=== PATIENT | male | born 1990 | race African-American/Black ===

== ENCOUNTER 2020-06-12 09:29 | Inpatient (IN) | payer BC, SELFPAY ==
[2020-06-12] MEDS ORDERED: Dexamethasone 10 MG/ML VIAL ONE (09:46)
[2020-06-12] MEDS ORDERED: Albuterol 200 PUFF (6.7GM INHALER) ONE (09:47)
[2020-06-12 10:31] LABS: #Eosinphils 0.2 thou/uL (0.0-0.7); #Lymphocytes 1.8 thou/uL (1.20-3.40); #Monocytes 0.5 thou/uL (0.11-0.59); #Neutrophils 3.2 thou/uL (1.40-6.50); %Basophils 0.3 % (0.0-1.0); %Eosinophils 3.6 % (0.0-10.0); %Lymphocytes 32.2 % (21.0-51.0); %Monocytes 8.9 % (0.0-10.0); %Neutrophils 55.1 % (42.0-75.0); Hemoglobin 14.8 g/dL (14.0-18.0); Mean Corpuscular HGB CONC 34.8 g/dL (32.0-36.0); Mean Corpuscular Hemoglobin 29.7 pg (27.0-31.0); Mean Corpuscular Volume 85.4 fL (78.0-98.0); Mean Platelet Volume 6.9 fL (7.4-10.4); Platelet Count 281 thou/uL (130-400); RBC Distribution Width 11.2 % (11.5-14.5); Red Blood Cell (RBC) Count 4.97 mill/uL (4.70-6.10); White Blood Cell (WBC) Count 5.7 thou/uL (4.8-10.8)
[2020-06-12 10:52] LABS: ALT (SGPT) 25 U/L (8-55); AST (SGOT) 40 U/L (5-34); Alkaline Phosphatase 112 U/L (40-110); Anion Gap 15 mmol/L (10-20); BUN (Urea Nitrogen) 14 mg/dL (8.9-20.6); Bilirubin, Total 0.6 mg/dL (0.2-1.2); Calc. Creatinine Clearance 0 mL/min (70-130); Calcium 8.9 mg/dL (7.8-10.44); Carbon Dioxide 18 mmol/L (22-29); Chloride 112 mmol/L (98-107); Glucose 92 mg/dL (70-105); Potassium 4.1 mmol/L (3.5-5.1); Sodium 141 mmol/L (136-145)
[2020-06-12] MEDS ORDERED: Iopamidol-370 76% 500 ML 1 ML ONE (11:30)
[2020-06-12 11:36] LABS: CKMB 4.9 ng/mL (0-6.6)
[2020-06-12] MEDS ORDERED: Enoxaparin Sodium 100 MG/ML SYRINGE ONE ×2 (12:08→12:09)
[2020-06-12] MEDS ORDERED: Enoxaparin Sodium 40 MG/0.4 ML SYRINGE ONE (12:08)
[2020-06-12 15:04] VITALS: BMI 47.9
[2020-06-12] MEDS ORDERED: Ondansetron ODT 4 MG TAB SL PRN (15:30)
[2020-06-12] MEDS ORDERED: Ondansetron PF 4 MG/2 ML Vial IVP PRN ×2 (15:30→16:17)
[2020-06-12] MEDS ORDERED: Acetaminophen 325 MG TAB PO PRN (15:30)
[2020-06-12] MEDS ORDERED: cloNIDine 0.1 MG TAB PO PRN (16:05)
[2020-06-12] MEDS ORDERED: Nitroglycerin 0.4 MG TAB (25 Tab Bottle) SL PRN (16:06)
[2020-06-12] MEDS ORDERED: Amlodipine 5 MG TAB PO SCH (16:15)
[2020-06-12] MEDS ORDERED: Calcium Carbonate 500 MG ChewTAB PO PRN (16:17)
[2020-06-12] MEDS ORDERED: Ondansetron ODT 4 MG TAB PO PRN (16:17)
[2020-06-12] MEDS: Carvedilol 6.25 MG TAB PO SCH (16:37)
[2020-06-12] MEDS: Amlodipine 5 MG TAB PO SCH (20:30)
[2020-06-12] MEDS: Benztropine 1 MG TAB PO SCH (20:31)
[2020-06-12] MEDS: clonazePAM 0.5 MG TAB PO SCH (20:32)
[2020-06-12] MEDS: Famotidine 20 MG TAB PO SCH (20:32)
[2020-06-12] MEDS: Prazosin HCl 1 MG CAP PO SCH (20:33)
[2020-06-12] MEDS ORDERED: Enoxaparin Sodium 100 MG/ML SYRINGE SC SCH (21:00)
[2020-06-12] MEDS ORDERED: Enoxaparin Sodium 40 MG/0.4 ML SYRINGE SC SCH (21:00)
[2020-06-13 06:29] LABS: #Monocytes 0.6 thou/uL (0.11-0.59); #Neutrophils 7.3 thou/uL (1.40-6.50); %Basophils 0.1 % (0.0-1.0); %Eosinophils 0.4 % (0.0-10.0); %Lymphocytes 20.3 % (21.0-51.0); %Monocytes 6.2 % (0.0-10.0); Mean Corpuscular HGB CONC 35.1 g/dL (32.0-36.0); Mean Corpuscular Hemoglobin 30.3 pg (27.0-31.0); Mean Corpuscular Volume 86.2 fL (78.0-98.0); Platelet Count 337 thou/uL (130-400); RBC Distribution Width 11.2 % (11.5-14.5); Red Blood Cell (RBC) Count 4.62 mill/uL (4.70-6.10)
[2020-06-13 06:45] LABS: ALT (SGPT) 33 U/L (8-55); AST (SGOT) 36 U/L (5-34); Albumin 3.8 g/dL (3.5-5.0); Alkaline Phosphatase 103 U/L (40-110); Anion Gap 15 mmol/L (10-20); BUN (Urea Nitrogen) 14 mg/dL (8.9-20.6); Bilirubin, Total 0.3 mg/dL (0.2-1.2); Calc. Creatinine Clearance 227 mL/min (70-130); Calcium 8.6 mg/dL (7.8-10.44); Carbon Dioxide 17 mmol/L (22-29); Chloride 111 mmol/L (98-107); Glucose 111 mg/dL (70-105); Potassium 3.8 mmol/L (3.5-5.1); Protein, Total 6.8 g/dL (6.0-8.3); Sodium 139 mmol/L (136-145)
[2020-06-13] MEDS ORDERED: Heparin 10,000 UNITS/ 10 ML VIAL SLOW IVP SCH (08:15)
[2020-06-13] MEDS ORDERED: FLU VACC QS2020-21(6MOS UP)/PF 60 MCG/0.5 ML SYRINGE IM ONE (09:00)
[2020-06-13 09:38] LABS: Hemoglobin 13.6 g/dL (14.0-18.0); Platelet Count 326 thou/uL (130-400)
[2020-06-13] MEDS: Bupropion 150 MG SR TAB PO SCH (09:51)
[2020-06-13] MEDS: Carvedilol 6.25 MG TAB PO SCH ×2 (09:51→17:18)
[2020-06-13] MEDS: clonazePAM 0.5 MG TAB PO SCH ×2 (09:51→22:25)
[2020-06-13] MEDS: Amlodipine 5 MG TAB PO SCH ×2 (09:51→22:18)
[2020-06-13] MEDS: Famotidine 20 MG TAB PO SCH ×2 (09:51→22:17)
[2020-06-13] MEDS: Heparin 25,000 units/D5W 500 ML IVPB SCH ×2 (10:25→23:29)
[2020-06-13 17:11] LABS: PTT 202.4 sec (22.9-36.1)
[2020-06-13] MEDS: Benztropine 1 MG TAB PO SCH (22:17)
[2020-06-13] MEDS: Prazosin HCl 1 MG CAP PO SCH (22:17)
[2020-06-14 04:32] LABS: #Basophils 0.1 thou/uL (0.0-0.2); #Eosinphils 0.2 thou/uL (0.0-0.7); #Lymphocytes 3.9 thou/uL (1.20-3.40); #Monocytes 0.8 thou/uL (0.11-0.59); #Neutrophils 5.1 thou/uL (1.40-6.50); %Basophils 0.9 % (0.0-1.0); %Eosinophils 2.2 % (0.0-10.0); %Lymphocytes 38.3 % (21.0-51.0); %Monocytes 8.2 % (0.0-10.0); %Neutrophils 50.4 % (42.0-75.0); Hemoglobin 13.1 g/dL (14.0-18.0); Mean Corpuscular HGB CONC 33.8 g/dL (32.0-36.0); Mean Corpuscular Volume 85.7 fL (78.0-98.0); Platelet Count 327 thou/uL (130-400); RBC Distribution Width 11.3 % (11.5-14.5); Red Blood Cell (RBC) Count 4.53 mill/uL (4.70-6.10); White Blood Cell (WBC) Count 10.1 thou/uL (4.8-10.8)
[2020-06-14 04:52] LABS: Troponin I 0.022 ng/mL (< 0.028)
[2020-06-14 05:00] LABS: ALT (SGPT) 75 U/L (8-55); AST (SGOT) 58 U/L (5-34); Albumin 3.5 g/dL (3.5-5.0); Alkaline Phosphatase 99 U/L (40-110); Anion Gap 14 mmol/L (10-20); BUN (Urea Nitrogen) 15 mg/dL (8.9-20.6); Bilirubin, Total 0.3 mg/dL (0.2-1.2); Calc. Creatinine Clearance 235 mL/min (70-130); Calcium 8.2 mg/dL (7.8-10.44); Carbon Dioxide 18 mmol/L (22-29); Chloride 112 mmol/L (98-107); Globulin 2.6 g/dL (2.4-3.5); Glucose 106 mg/dL (70-105); Potassium 3.6 mmol/L (3.5-5.1); Protein, Total 6.1 g/dL (6.0-8.3); Sodium 140 mmol/L (136-145)
[2020-06-14] MEDS: Bupropion 150 MG SR TAB PO SCH (08:35)
[2020-06-14] MEDS: clonazePAM 0.5 MG TAB PO SCH ×2 (08:35→20:47)
[2020-06-14] MEDS: Amlodipine 5 MG TAB PO SCH ×2 (08:35→20:47)
[2020-06-14] MEDS: Famotidine 20 MG TAB PO SCH ×2 (08:35→20:45)
[2020-06-14] MEDS: Heparin 25,000 units/D5W 500 ML IVPB SCH (14:33)
[2020-06-14] MEDS: Prazosin HCl 1 MG CAP PO SCH (20:46)
[2020-06-14] MEDS: Benztropine 1 MG TAB PO SCH (20:47)
[2020-06-15] MEDS: Heparin 25,000 units/D5W 500 ML IVPB SCH (01:22)
[2020-06-15 06:35] LABS: #Basophils 0.1 thou/uL (0.0-0.2); #Eosinphils 0.3 thou/uL (0.0-0.7); #Lymphocytes 3.1 thou/uL (1.20-3.40); #Monocytes 0.8 thou/uL (0.11-0.59); #Neutrophils 5.7 thou/uL (1.40-6.50); %Basophils 1.1 % (0.0-1.0); %Eosinophils 3.3 % (0.0-10.0); %Lymphocytes 31.4 % (21.0-51.0); %Monocytes 7.6 % (0.0-10.0); %Neutrophils 56.6 % (42.0-75.0); Hemoglobin 15.7 g/dL (14.0-18.0); Mean Corpuscular HGB CONC 34.9 g/dL (32.0-36.0); Mean Corpuscular Hemoglobin 29.9 pg (27.0-31.0); Mean Corpuscular Volume 85.6 fL (78.0-98.0); Mean Platelet Volume 6.7 fL (7.4-10.4); Platelet Count 368 thou/uL (130-400); RBC Distribution Width 11.4 % (11.5-14.5); Red Blood Cell (RBC) Count 5.27 mill/uL (4.70-6.10)
[2020-06-15 06:53] LABS: Anion Gap 12 mmol/L (10-20); BUN (Urea Nitrogen) 12 mg/dL (8.9-20.6); Calc. Creatinine Clearance 230 mL/min (70-130); Calcium 8.9 mg/dL (7.8-10.44); Carbon Dioxide 20 mmol/L (22-29); Chloride 110 mmol/L (98-107); Glucose 87 mg/dL (70-105); Potassium 4.1 mmol/L (3.5-5.1); Sodium 138 mmol/L (136-145)
[2020-06-15] MEDS: clonazePAM 0.5 MG TAB PO SCH ×2 (07:47→20:08)
[2020-06-15] MEDS: Bupropion 150 MG SR TAB PO SCH (07:48)
[2020-06-15] MEDS: Famotidine 20 MG TAB PO SCH ×2 (07:48→20:08)
[2020-06-15] MEDS: Amlodipine 5 MG TAB PO SCH ×2 (07:48→20:08)
[2020-06-15] MEDS: Apixaban 5 MG TAB PO SCH ×2 (08:21→20:08)
[2020-06-15 08:39] LABS: Platelet Count 392 thou/uL (130-400)
[2020-06-15] MEDS: Prazosin HCl 1 MG CAP PO SCH (20:07)
[2020-06-15] MEDS: Benztropine 1 MG TAB PO SCH (20:08)
[2020-06-16 08:52] VITALS: TEMP 98
[2020-06-16] MEDS: clonazePAM 0.5 MG TAB PO SCH (10:09)
[2020-06-16] MEDS: Apixaban 5 MG TAB PO SCH (10:09)
[2020-06-16] MEDS: Famotidine 20 MG TAB PO SCH (10:09)
[2020-06-16] MEDS: Bupropion 150 MG SR TAB PO SCH (10:10)
[2020-06-16] MEDS: Amlodipine 5 MG TAB PO SCH ×2 (10:10→18:25)
[2020-06-16 18:39] VITALS: BP 156/95
== END 2020-06-16 18:25 | disposition home or self-care (01) | DRG 175 ==
LOC: ERS 09:29 → 2SW 13:00
PROVIDERS: ADMIT Internal Medicine; ATTEND Hospitalist
PROC: 8E0ZXY6 Isolation (ICD-10-PCS; principal; 2020-06-12)
DX: I26.92 Saddle embolus of pulmonary artery without acute cor pulmonale (principal); U07.1 COVID-19; I82.432 Acute embolism and thrombosis of left popliteal vein; F20.0 Paranoid schizophrenia; Z68.42 Body mass index [BMI] 45.0-49.9, adult; Z23 Encounter for immunization; I11.9 Hypertensive heart disease without heart failure; F31.9 Bipolar disorder, unspecified; E66.01 Morbid (severe) obesity due to excess calories; E27.8 Other specified disorders of adrenal gland; I44.1 Atrioventricular block, second degree; Z91.013 Allergy to seafood; Z79.899 Other long term (current) drug therapy; Z91.14 Patient's other noncompliance with medication regimen; Z87.891 Personal history of nicotine dependence; F41.9 Anxiety disorder, unspecified
CPT/HCPCS: 36415; 71045; 71275; 80048; 80053; 82553; 84484; 85014; 85018; 85025; 85049; 85379; 85730; 93005; 93010; 93970; 94760; 96372; 96374; J1100; J1644; J1650; Q9967

== ENCOUNTER 2020-07-05 21:19 | Emergency (ER) | payer BC ==
[~2020-07-05 21:19] MED LIST: Iopamidol-370 76% 500 ML 1 ML ONE
[2020-07-05 21:59] LABS: #Eosinphils 0.2 thou/uL (0.0-0.7); #Lymphocytes 1.7 thou/uL (1.20-3.40); #Monocytes 0.4 thou/uL (0.11-0.59); #Neutrophils 4.5 thou/uL (1.40-6.50); %Basophils 0.5 % (0.0-1.0); %Eosinophils 3.6 % (0.0-10.0); %Lymphocytes 24.8 % (21.0-51.0); %Monocytes 5.5 % (0.0-10.0); %Neutrophils 65.7 % (42.0-75.0); Hemoglobin 12.5 g/dL (14.0-18.0); Mean Corpuscular HGB CONC 33.9 g/dL (32.0-36.0); Mean Corpuscular Hemoglobin 29.3 pg (27.0-31.0); Mean Corpuscular Volume 86.5 fL (78.0-98.0); Mean Platelet Volume 6.9 fL (7.4-10.4); Platelet Count 338 thou/uL (130-400); RBC Distribution Width 12.1 % (11.5-14.5); Red Blood Cell (RBC) Count 4.27 mill/uL (4.70-6.10); White Blood Cell (WBC) Count 6.8 thou/uL (4.8-10.8)
[2020-07-05 22:18] LABS: Anion Gap 10 mmol/L (10-20); BUN (Urea Nitrogen) 21 mg/dL (8.9-20.6); Calc. Creatinine Clearance 0 mL/min (70-130); Calcium 8.8 mg/dL (7.8-10.44); Carbon Dioxide 24 mmol/L (22-29); Chloride 108 mmol/L (98-107); Glucose 133 mg/dL (70-105); Potassium 3.4 mmol/L (3.5-5.1); Sodium 139 mmol/L (136-145)
[2020-07-05] MEDS ORDERED: Acetaminophen 325 MG TAB ONE (23:03)
[2020-07-06 00:03] LABS: Acetaminophen Less than 6.0 mcg/mL (10.0-30.0); Alcohol Less than 10 mg/dL (Less than 10); Salicylate Less than 8.0 mg/dL (15.0-30.0)
[2020-07-06 00:37] LABS: Amphetamine Not Detected (NotDetected); Barbiturates Screen Not Detected (NotDetected); Benzodiazepine Screen Not Detected (NotDetected); Cocaine Metabolite Screen Not Detected (NotDetected); Medtox Control Line Valid? VALID (VALID); Medtox Reader # READER 4; Methadone Not Detected (NotDetected); Methamphetamine Not Detected (NotDetected); Opiate Screen Not Detected (NotDetected); Oxycodone Screen Not Detected (NotDetected); Phencyclidine (PCP) Not Detected (NotDetected); THC/Cannabinoid Screen Not Detected (NotDetected); Tricyclic Screen Detected (NotDetected)
[2020-07-06] MEDS ORDERED: Enoxaparin Sodium 100 MG/ML SYRINGE ONE (01:01)
[2020-07-06] MEDS ORDERED: Enoxaparin Sodium 30 MG/0.3 ML SYRINGE ONE (01:01)
[2020-07-06] MEDS ORDERED: Enoxaparin Sodium 40 MG/0.4 ML SYRINGE ONE (01:03)
[2020-07-06] MEDS ORDERED: Apixaban 5 MG TAB PO SCH ×2 (14:00→21:00)
[2020-07-06] MEDS ORDERED: clonazePAM 1 MG TAB PO SCH (15:00)
[2020-07-06] MEDS ORDERED: clonazePAM 1 MG TAB ONE (17:04)
[2020-07-07] MEDS ORDERED: Bupropion 150 MG SR TAB PO SCH (09:00)
== END 2020-07-06 17:20 ==
LOC: ERS 21:19
DX: R45.850 Homicidal ideations (principal); I10 Essential (primary) hypertension; Z87.891 Personal history of nicotine dependence; Z86.711 Personal history of pulmonary embolism; Z79.01 Long term (current) use of anticoagulants; Z79.899 Other long term (current) drug therapy
CPT/HCPCS: 36415; 71275; 80048; 80306; 80307; 83880; 84484; 85025; 93005; 96372; J1650; Q9967

== ENCOUNTER 2020-10-15 13:21 | Emergency (ER) | payer BC | END 2020-10-15 14:58 | disposition home or self-care (01) | LOC: ERS 13:21 | DX: R51.9 Headache, unspecified (principal); Z02.79 Encounter for issue of other medical certificate; I10 Essential (primary) hypertension; F17.210 Nicotine dependence, cigarettes, uncomplicated; Z79.899 Other long term (current) drug therapy | CPT/HCPCS: 36415; 71045; 80053; 84484; 85025; 93005 ==

== ENCOUNTER 2020-12-10 03:05 | Emergency (ER) | payer SELFPAY ==
[2020-12-10] MEDS ORDERED: Acetaminophen 500 MG TAB ONE (03:21)
[2020-12-10] MEDS ORDERED: Iopamidol-370 76% 500 ML 1 ML ONE (12:12)
== END 2020-12-10 04:30 | disposition home or self-care (01) ==
LOC: ERS 03:05
DX: R51.9 Headache, unspecified (principal); I10 Essential (primary) hypertension; Z86.711 Personal history of pulmonary embolism; Z79.01 Long term (current) use of anticoagulants; Z79.899 Other long term (current) drug therapy
CPT/HCPCS: 71275; Q9967

== ENCOUNTER 2020-12-12 11:40 | Emergency (ER) | payer SELFPAY ==
[2020-12-12 14:14] LABS: #Eosinphils 0.4 thou/uL (0.0-0.7); #Lymphocytes 1.6 thou/uL (1.20-3.40); #Monocytes 0.3 thou/uL (0.11-0.59); #Neutrophils 3.5 thou/uL (1.40-6.50); %Basophils 0.7 % (0.0-1.0); %Eosinophils 6.3 % (0.0-10.0); %Lymphocytes 27.3 % (21.0-51.0); %Monocytes 5.6 % (0.0-10.0); %Neutrophils 60.1 % (42.0-75.0); Hemoglobin 15.3 g/dL (14.0-18.0); Mean Corpuscular HGB CONC 33.9 g/dL (32.0-36.0); Mean Corpuscular Hemoglobin 29.5 pg (27.0-31.0); Mean Corpuscular Volume 87.1 fL (78.0-98.0); Platelet Count 325 thou/uL (130-400); RBC Distribution Width 11.6 % (11.5-14.5); Red Blood Cell (RBC) Count 5.18 mill/uL (4.70-6.10); White Blood Cell (WBC) Count 5.8 thou/uL (4.8-10.8)
[2020-12-12 14:20] LABS: Amphetamine Not Detected (NotDetected); Barbiturates Screen Not Detected (NotDetected); Benzodiazepine Screen Not Detected (NotDetected); Cocaine Metabolite Screen Not Detected (NotDetected); Methadone Not Detected (NotDetected); Methamphetamine Not Detected (NotDetected); Opiate Screen Not Detected (NotDetected); Oxycodone Screen Not Detected (NotDetected); Phencyclidine (PCP) Not Detected (NotDetected); THC/Cannabinoid Screen Not Detected (NotDetected); Tricyclic Screen Detected (NotDetected)
[2020-12-12 14:31] LABS: ALT (SGPT) 26 U/L (8-55); AST (SGOT) 36 U/L (5-34); Albumin 4.2 g/dL (3.5-5.0); Alkaline Phosphatase 113 U/L (40-110); Anion Gap 12 mmol/L (10-20); BUN (Urea Nitrogen) 16 mg/dL (8.9-20.6); Bilirubin, Total 0.3 mg/dL (0.2-1.2); Calc. Creatinine Clearance 0 mL/min (70-130); Calcium 9.7 mg/dL (7.8-10.44); Carbon Dioxide 22 mmol/L (22-29); Chloride 108 mmol/L (98-107); Globulin 3.2 g/dL (2.4-3.5); Glucose 99 mg/dL (70-105); Potassium 4.4 mmol/L (3.5-5.1); Protein, Total 7.4 g/dL (6.0-8.3); Sodium 138 mmol/L (136-145)
[2020-12-12 14:37] LABS: Acetaminophen Less than 6.0 mcg/mL (10.0-30.0); Alcohol Less than 10 mg/dL (Less than 10); Salicylate Less than 8.0 mg/dL (15.0-30.0)
[2020-12-12 14:39] LABS: Clarity Clear (Clear); Glucose, Urine (Dipstick) Negative (Negative); Leukocyte Negative Leu/uL (Negative); Nitrite Negative (Negative); Protein, Urine (Dipstick) Negative (Neg-Trace); Specific Gravity, Urine 1.022 (1.002-1.036)
[2020-12-12 14:40] LABS: Bilirubin Negative (Negative); Blood, Urine Negative (Negative); Ketone, Urine Negative (Negative); Urobilinogen Normal mg/dL (Less than 2)
== END 2020-12-12 16:05 | disposition home or self-care (01) ==
LOC: ERS 11:40
DX: F20.9 Schizophrenia, unspecified (principal); I10 Essential (primary) hypertension; Z86.711 Personal history of pulmonary embolism; Z79.01 Long term (current) use of anticoagulants; Z79.899 Other long term (current) drug therapy
CPT/HCPCS: 36415; 80053; 80306; 80307; 81003; 84443; 85025; 93005

== ENCOUNTER 2020-12-12 23:21 | Emergency (ER) | payer SELFPAY ==
[2020-12-13 00:13] LABS: Bacteria/HPF None Seen HPF (None Seen); Bilirubin Negative (Negative); Blood, Urine Negative (Negative); Clarity Clear (Clear); Glucose, Urine (Dipstick) Normal (Negative); Ketone, Urine Trace mg/dL (Negative); Leukocyte Negative Leu/uL (Negative); Nitrite Negative (Negative); Protein, Urine (Dipstick) 30 mg/dL (Neg-Trace); RBC/HPF 0-3 HPF (0-3); Specific Gravity, Urine 1.028 (1.002-1.036); Squamous Epithelial 0-3 HPF (0-3); Urobilinogen Normal mg/dL (Less than 2); WBC/HPF 0-3 HPF (0-3); pH, Urine 5.5 (5.0-9.0)
[2020-12-13 00:18] LABS: Amphetamine Not Detected (NotDetected); Barbiturates Screen Not Detected (NotDetected); Benzodiazepine Screen Not Detected (NotDetected); Cocaine Metabolite Screen Not Detected (NotDetected); Methadone Not Detected (NotDetected); Methamphetamine Not Detected (NotDetected); Opiate Screen Not Detected (NotDetected); Oxycodone Screen Not Detected (NotDetected); Phencyclidine (PCP) Not Detected (NotDetected); THC/Cannabinoid Screen Not Detected (NotDetected); Tricyclic Screen Detected (NotDetected)
[2020-12-13 00:39] LABS: #Basophils 0.1 thou/uL (0.0-0.2); #Eosinphils 0.3 thou/uL (0.0-0.7); #Monocytes 0.5 thou/uL (0.11-0.59); #Neutrophils 3.5 thou/uL (1.40-6.50); %Eosinophils 5.4 % (0.0-10.0); %Lymphocytes 30.8 % (21.0-51.0); %Monocytes 7.3 % (0.0-10.0); %Neutrophils 55.5 % (42.0-75.0); Hemoglobin 14.5 g/dL (14.0-18.0); Mean Corpuscular HGB CONC 34.8 g/dL (32.0-36.0); Mean Corpuscular Hemoglobin 30.3 pg (27.0-31.0); Mean Platelet Volume 7.1 fL (7.4-10.4); Platelet Count 322 thou/uL (130-400); RBC Distribution Width 11.6 % (11.5-14.5); Red Blood Cell (RBC) Count 4.77 mill/uL (4.70-6.10); White Blood Cell (WBC) Count 6.3 thou/uL (4.8-10.8)
[2020-12-13 01:01] LABS: Acetaminophen Less than 6.0 mcg/mL (10.0-30.0); Alcohol Less than 10 mg/dL (Less than 10); CK (CPK) 1624 U/L (30-200); Salicylate Less than 8.0 mg/dL (15.0-30.0)
[2020-12-13 01:02] LABS: ALT (SGPT) 25 U/L (8-55); AST (SGOT) 32 U/L (5-34); Albumin 4.2 g/dL (3.5-5.0); Alkaline Phosphatase 105 U/L (40-110); Anion Gap 16 mmol/L (10-20); BUN (Urea Nitrogen) 21 mg/dL (8.9-20.6); Bilirubin, Total 0.2 mg/dL (0.2-1.2); Calc. Creatinine Clearance 0 mL/min (70-130); Calcium 9.5 mg/dL (7.8-10.44); Carbon Dioxide 20 mmol/L (22-29); Chloride 108 mmol/L (98-107); Globulin 3.1 g/dL (2.4-3.5); Glucose 101 mg/dL (70-105); Potassium 3.8 mmol/L (3.5-5.1); Protein, Total 7.3 g/dL (6.0-8.3); Sodium 140 mmol/L (136-145)
== END 2020-12-13 03:13 | disposition home or self-care (01) ==
LOC: ERS 23:21
DX: R44.0 Auditory hallucinations (principal); I10 Essential (primary) hypertension; Z79.899 Other long term (current) drug therapy
CPT/HCPCS: 36415; 80306; 80307; 81015; 82550; 84443; 99285

== ENCOUNTER 2020-12-21 01:50 | Emergency (ER) | payer SELFPAY ==
[2020-12-21] MEDS ORDERED: Ketorolac Tromethamine 30 MG/ML VIAL ONE (02:34)
[2020-12-21] MEDS ORDERED: diphenhydrAMINE 50 MG/ML VIAL ONE (02:34)
[2020-12-21] MEDS ORDERED: Metoclopramide 10 MG/10 ML UDCUP ONE (02:34)
[2020-12-21] MEDS ORDERED: Metoclopramide HCl 10 MG/2 ML VIAL ONE (02:35)
[2020-12-21 03:13] LABS: #Basophils 0.1 thou/uL (0.0-0.2); #Eosinphils 0.3 thou/uL (0.0-0.7); #Lymphocytes 2.6 thou/uL (1.20-3.40); #Monocytes 0.5 thou/uL (0.11-0.59); %Basophils 0.8 % (0.0-1.0); %Eosinophils 3.4 % (0.0-10.0); %Neutrophils 53.8 % (42.0-75.0); Hemoglobin 14.5 g/dL (14.0-18.0); Mean Corpuscular HGB CONC 34.5 g/dL (32.0-36.0); Mean Corpuscular Hemoglobin 29.9 pg (27.0-31.0); Mean Corpuscular Volume 86.7 fL (78.0-98.0); Mean Platelet Volume 6.8 fL (7.4-10.4); Platelet Count 387 thou/uL (130-400); RBC Distribution Width 11.7 % (11.5-14.5); Red Blood Cell (RBC) Count 4.85 mill/uL (4.70-6.10); White Blood Cell (WBC) Count 7.5 thou/uL (4.8-10.8)
[2020-12-21 03:16] LABS: Chloride 107 mmol/L (98-107); Potassium 3.7 mmol/L (3.5-5.1); Sodium 139 mmol/L (136-145)
[2020-12-21 03:17] LABS: Calcium 9.5 mg/dL (7.8-10.44)
[2020-12-21 03:34] LABS: Glucose 102 mg/dL (70-105)
[2020-12-21 03:35] LABS: Anion Gap 14 mmol/L (10-20); Bilirubin, Total 0.3 mg/dL (0.2-1.2); Carbon Dioxide 22 mmol/L (22-29)
[2020-12-21 03:36] LABS: Alcohol Less than 10 mg/dL (Less than 10)
[2020-12-21 03:37] LABS: Alkaline Phosphatase 118 U/L (40-110); Calc. Creatinine Clearance 0 mL/min (70-130)
[2020-12-21 03:38] LABS: BUN (Urea Nitrogen) 12 mg/dL (8.9-20.6)
[2020-12-21 03:39] LABS: AST (SGOT) 43 U/L (5-34)
[2020-12-21 03:40] LABS: ALT (SGPT) 27 U/L (8-55); Acetaminophen Less than 6.0 mcg/mL (10.0-30.0); Salicylate Less than 8.0 mg/dL (15.0-30.0)
[2020-12-21 04:19] LABS: Bilirubin Negative (Negative); Blood, Urine Negative (Negative); Clarity Clear (Clear); Glucose, Urine (Dipstick) Normal (Negative); Ketone, Urine Negative (Negative); Leukocyte Negative Leu/uL (Negative); Nitrite Negative (Negative); Protein, Urine (Dipstick) Negative (Neg-Trace); Specific Gravity, Urine 1.021 (1.002-1.036); Urobilinogen Normal mg/dL (Less than 2); pH, Urine 6.5 (5.0-9.0)
[2020-12-21 04:27] LABS: Amphetamine Not Detected (NotDetected); Barbiturates Screen Not Detected (NotDetected); Benzodiazepine Screen Not Detected (NotDetected); Cocaine Metabolite Screen Not Detected (NotDetected); Methadone Not Detected (NotDetected); Methamphetamine Not Detected (NotDetected); Opiate Screen Not Detected (NotDetected); Oxycodone Screen Not Detected (NotDetected); Phencyclidine (PCP) Not Detected (NotDetected); THC/Cannabinoid Screen Not Detected (NotDetected); Tricyclic Screen Detected (NotDetected)
[2020-12-21] MEDS ORDERED: Haloperidol Lactate 5 MG/ML VIAL ONE ×2 (05:08→22:08)
[2020-12-21] MEDS ORDERED: Amlodipine 5 MG TAB ONE (17:05)
[2020-12-21] MEDS ORDERED: Apixaban 5 MG TAB PO SCH (17:15)
[2020-12-21] MEDS ORDERED: Prazosin HCl 1 MG CAP PO SCH (17:15)
[2020-12-21] MEDS ORDERED: buPROPion HCl 100 MG TAB PO SCH (17:30)
[2020-12-21] MEDS ORDERED: buPROPion 75 MG TAB PO SCH (18:00)
[2020-12-22] MEDS ORDERED: Lorazepam 1 MG TAB ONE (21:18)
[2020-12-22] MEDS ORDERED: Amlodipine 5 MG TAB ONE (21:18)
[2020-12-22] MEDS ORDERED: Prazosin HCl 1 MG CAP PO SCH (21:30)
[2020-12-22] MEDS ORDERED: buPROPion 75 MG TAB PO SCH (21:30)
[2020-12-22] MEDS ORDERED: Apixaban 5 MG TAB PO SCH (22:15)
[2020-12-23] MEDS ORDERED: Apixaban 5 MG TAB PO SCH (09:00)
== END 2020-12-23 20:45 | disposition left against medical advice (07) ==
LOC: ERS 01:50
DX: F20.9 Schizophrenia, unspecified (principal); R51.9 Headache, unspecified; I10 Essential (primary) hypertension; G47.00 Insomnia, unspecified; Z79.01 Long term (current) use of anticoagulants; Z86.711 Personal history of pulmonary embolism; Z79.899 Other long term (current) drug therapy
CPT/HCPCS: 36415; 70450; 80053; 80306; 80307; 81003; 82550; 84443; 85025; 96374; 96375; 96376; J1200; J1630; J1885; J2765

== ENCOUNTER 2020-12-24 04:30 | Emergency (ER) | payer SELFPAY ==
[2020-12-24 05:34] LABS: #Basophils 0.1 thou/uL (0.0-0.2); #Eosinphils 0.3 thou/uL (0.0-0.7); #Monocytes 0.4 thou/uL (0.11-0.59); #Neutrophils 3.8 thou/uL (1.40-6.50); %Basophils 0.9 % (0.0-1.0); %Eosinophils 4.2 % (0.0-10.0); %Lymphocytes 30.7 % (21.0-51.0); %Monocytes 5.4 % (0.0-10.0); %Neutrophils 58.9 % (42.0-75.0); Hemoglobin 14.1 g/dL (14.0-18.0); Mean Corpuscular HGB CONC 33.3 g/dL (32.0-36.0); Mean Corpuscular Hemoglobin 29.3 pg (27.0-31.0); Mean Corpuscular Volume 87.9 fL (78.0-98.0); Mean Platelet Volume 6.8 fL (7.4-10.4); Platelet Count 354 thou/uL (130-400); RBC Distribution Width 11.7 % (11.5-14.5); Red Blood Cell (RBC) Count 4.83 mill/uL (4.70-6.10); White Blood Cell (WBC) Count 6.5 thou/uL (4.8-10.8)
[2020-12-24 05:54] LABS: ALT (SGPT) 30 U/L (8-55); AST (SGOT) 34 U/L (5-34); Alkaline Phosphatase 118 U/L (40-110); Anion Gap 13 mmol/L (10-20); BUN (Urea Nitrogen) 16 mg/dL (8.9-20.6); Bilirubin, Total 0.2 mg/dL (0.2-1.2); Calc. Creatinine Clearance 0 mL/min (70-130); Calcium 9.7 mg/dL (7.8-10.44); Carbon Dioxide 25 mmol/L (22-29); Chloride 108 mmol/L (98-107); Globulin 3.1 g/dL (2.4-3.5); Glucose 112 mg/dL (70-105); Potassium 3.6 mmol/L (3.5-5.1); Protein, Total 7.1 g/dL (6.0-8.3); Sodium 142 mmol/L (136-145)
[2020-12-24 05:59] LABS: Acetaminophen Less than 6.0 mcg/mL (10.0-30.0); Alcohol Less than 10 mg/dL (Less than 10); CK (CPK) 1238 U/L (30-200); Salicylate Less than 8.0 mg/dL (15.0-30.0)
[2020-12-24 07:10] LABS: Amphetamine Not Detected (NotDetected); Barbiturates Screen Not Detected (NotDetected); Benzodiazepine Screen Detected (NotDetected); Cocaine Metabolite Screen Not Detected (NotDetected); Methadone Not Detected (NotDetected); Methamphetamine Not Detected (NotDetected); Opiate Screen Not Detected (NotDetected); Oxycodone Screen Not Detected (NotDetected); Phencyclidine (PCP) Not Detected (NotDetected); THC/Cannabinoid Screen Not Detected (NotDetected); Tricyclic Screen Detected (NotDetected)
[2020-12-24] MEDS ORDERED: clonazePAM 1 MG TAB ONE (22:39)
[2020-12-24] MEDS ORDERED: Amlodipine 5 MG TAB ONE (22:40)
[2020-12-24] MEDS ORDERED: Apixaban 5 MG TAB PO SCH (22:45)
[2020-12-24] MEDS ORDERED: Prazosin HCl 1 MG CAP PO SCH (22:45)
[2020-12-24] MEDS ORDERED: Benztropine 1 MG TAB PO SCH (22:45)
[2020-12-24] MEDS ORDERED: buPROPion 75 MG TAB PO SCH (23:00)
[2020-12-25] MEDS ORDERED: Melatonin 3 MG TAB PO SCH (02:30)
[2020-12-25] MEDS ORDERED: Apixaban 5 MG TAB PO SCH (09:00)
[2020-12-25] MEDS ORDERED: clonazePAM 0.5 MG TAB ONE (11:33)
[2020-12-25] MEDS ORDERED: Amlodipine 5 MG TAB ONE ×2 (11:34→22:56)
[2020-12-25] MEDS ORDERED: buPROPion 75 MG TAB PO SCH (12:15)
[2020-12-25] MEDS ORDERED: clonazePAM 1 MG TAB ONE (23:02)
[2020-12-25] MEDS ORDERED: Prazosin HCl 1 MG CAP PO SCH (23:30)
[2020-12-26] MEDS ORDERED: Melatonin 3 MG TAB PO SCH (01:15)
[2020-12-26] MEDS ORDERED: Benztropine 1 MG TAB PO SCH (10:30)
[2020-12-26] MEDS ORDERED: Bupropion 150 MG SR TAB PO SCH (10:30)
[2020-12-26] MEDS ORDERED: Prazosin HCl 1 MG CAP PO SCH (10:30)
[2020-12-27] MEDS ORDERED: Amlodipine 5 MG TAB PO SCH (09:00)
== END 2020-12-24 21:06 | disposition left against medical advice (07) ==
LOC: ERS 04:30
DX: F22 Delusional disorders (principal); I10 Essential (primary) hypertension; Z86.711 Personal history of pulmonary embolism; Z79.01 Long term (current) use of anticoagulants; Z79.899 Other long term (current) drug therapy
CPT/HCPCS: 36415; 80053; 80306; 80307; 82550; 84443; 85025; 99285

== ENCOUNTER 2021-01-14 02:34 | Emergency (ER) | payer SELFPAY ==
[2021-01-14] MEDS ORDERED: Acetaminophen 500 MG TAB ONE (03:15)
[2021-01-14 05:17] LABS: #Eosinphils 0.3 thou/uL (0.0-0.7); #Lymphocytes 2.1 thou/uL (1.20-3.40); #Monocytes 0.5 thou/uL (0.11-0.59); #Neutrophils 4.2 thou/uL (1.40-6.50); %Basophils 0.5 % (0.0-1.0); %Eosinophils 4.7 % (0.0-10.0); %Lymphocytes 28.7 % (21.0-51.0); %Monocytes 7.3 % (0.0-10.0); %Neutrophils 58.8 % (42.0-75.0); Hemoglobin 13.9 g/dL (14.0-18.0); Mean Corpuscular HGB CONC 34.9 g/dL (32.0-36.0); Mean Corpuscular Hemoglobin 30.2 pg (27.0-31.0); Mean Corpuscular Volume 86.5 fL (78.0-98.0); Platelet Count 307 thou/uL (130-400); RBC Distribution Width 11.6 % (11.5-14.5); Red Blood Cell (RBC) Count 4.61 mill/uL (4.70-6.10); White Blood Cell (WBC) Count 7.2 thou/uL (4.8-10.8)
[2021-01-14 05:37] LABS: ALT (SGPT) 29 U/L (8-55); AST (SGOT) 55 U/L (5-34); Acetaminophen Less than 6.0 mcg/mL (10.0-30.0); Albumin 4.1 g/dL (3.5-5.0); Alcohol Less than 10 mg/dL (Less than 10); Alkaline Phosphatase 105 U/L (40-110); Anion Gap 14 mmol/L (10-20); BUN (Urea Nitrogen) 17 mg/dL (8.9-20.6); Bilirubin, Total 0.4 mg/dL (0.2-1.2); Calc. Creatinine Clearance 0 mL/min (70-130); Calcium 9.2 mg/dL (7.8-10.44); Carbon Dioxide 21 mmol/L (22-29); Chloride 108 mmol/L (98-107); Globulin 2.8 g/dL (2.4-3.5); Glucose 105 mg/dL (70-105); Potassium 3.8 mmol/L (3.5-5.1); Protein, Total 6.9 g/dL (6.0-8.3); Salicylate Less than 8.0 mg/dL (15.0-30.0); Sodium 139 mmol/L (136-145)
[2021-01-14] MEDS ORDERED: clonazePAM 0.5 MG TAB ONE (06:55)
[2021-01-14] MEDS ORDERED: Amlodipine 5 MG TAB ONE (06:55)
[2021-01-14 07:18] LABS: Amphetamine Not Detected (NotDetected); Barbiturates Screen Not Detected (NotDetected); Benzodiazepine Screen Not Detected (NotDetected); Cocaine Metabolite Screen Not Detected (NotDetected); Methadone Not Detected (NotDetected); Methamphetamine Not Detected (NotDetected); Opiate Screen Not Detected (NotDetected); Oxycodone Screen Not Detected (NotDetected); Phencyclidine (PCP) Not Detected (NotDetected); THC/Cannabinoid Screen Not Detected (NotDetected); Tricyclic Screen Detected (NotDetected)
[2021-01-14] MEDS ORDERED: Apixaban 5 MG TAB PO SCH (09:00)
[2021-01-14] MEDS ORDERED: Bupropion 150 MG XL TAB PO SCH (09:00)
[2021-01-14] MEDS ORDERED: Prazosin HCl 1 MG CAP PO SCH (21:00)
== END 2021-01-14 16:15 | disposition home or self-care (01) ==
LOC: ERS 02:34
DX: R51.9 Headache, unspecified (principal); F20.9 Schizophrenia, unspecified; Z86.711 Personal history of pulmonary embolism; Z79.01 Long term (current) use of anticoagulants; Z79.899 Other long term (current) drug therapy
CPT/HCPCS: 36415; 80053; 80306; 80307; 85025; 99284

== ENCOUNTER 2021-01-16 02:28 | Emergency (ER) | payer SELFPAY ==
[2021-01-16 03:30] LABS: #Eosinphils 0.4 thou/uL (0.0-0.7); #Lymphocytes 2.4 thou/uL (1.20-3.40); #Monocytes 0.8 thou/uL (0.11-0.59); %Basophils 0.4 % (0.0-1.0); %Eosinophils 4.9 % (0.0-10.0); %Lymphocytes 27.6 % (21.0-51.0); %Monocytes 9.2 % (0.0-10.0); %Neutrophils 57.9 % (42.0-75.0); Hemoglobin 14.4 g/dL (14.0-18.0); Mean Corpuscular HGB CONC 34.4 g/dL (32.0-36.0); Mean Corpuscular Hemoglobin 30.3 pg (27.0-31.0); Platelet Count 276 thou/uL (130-400); RBC Distribution Width 11.6 % (11.5-14.5); Red Blood Cell (RBC) Count 4.76 mill/uL (4.70-6.10); White Blood Cell (WBC) Count 8.7 thou/uL (4.8-10.8)
[2021-01-16 03:53] LABS: Acetaminophen Less than 6.0 mcg/mL (10.0-30.0); Alcohol Less than 10 mg/dL (Less than 10); Salicylate Less than 8.0 mg/dL (15.0-30.0)
[2021-01-16 03:54] LABS: ALT (SGPT) 27 U/L (8-55); AST (SGOT) 40 U/L (5-34); Albumin 4.1 g/dL (3.5-5.0); Alkaline Phosphatase 105 U/L (40-110); Anion Gap 14 mmol/L (10-20); BUN (Urea Nitrogen) 18 mg/dL (8.9-20.6); Bilirubin, Total 0.2 mg/dL (0.2-1.2); Calc. Creatinine Clearance 0 mL/min (70-130); Calcium 9.1 mg/dL (7.8-10.44); Carbon Dioxide 21 mmol/L (22-29); Chloride 109 mmol/L (98-107); Glucose 111 mg/dL (70-105); Potassium 3.9 mmol/L (3.5-5.1); Protein, Total 7.1 g/dL (6.0-8.3); Sodium 140 mmol/L (136-145)
== END 2021-01-16 04:53 | disposition home or self-care (01) ==
LOC: ERS 02:28
DX: R44.0 Auditory hallucinations (principal); R44.1 Visual hallucinations; I10 Essential (primary) hypertension; Z86.711 Personal history of pulmonary embolism; Z79.01 Long term (current) use of anticoagulants; Z79.899 Other long term (current) drug therapy
CPT/HCPCS: 36415; 80053; 80307; 84443; 85025; 99285

== ENCOUNTER 2021-01-16 20:43 | Emergency (ER) | payer SELFPAY ==
[2021-01-17] MEDS ORDERED: Bupropion 150 MG XL TAB PO SCH (09:00)
[2021-01-17] MEDS ORDERED: Prazosin HCl 1 MG CAP PO SCH (09:00)
[2021-01-17] MEDS ORDERED: clonazePAM 0.5 MG TAB ONE (09:27)
[2021-01-17] MEDS ORDERED: Amlodipine 5 MG TAB ONE (09:27)
[2021-01-17] MEDS ORDERED: Benztropine 1 MG TAB PO SCH (09:30)
[2021-01-17] MEDS ORDERED: Apixaban 5 MG TAB PO SCH (10:00)
[2021-01-17] MEDS ORDERED: Valproic Acid 250 MG CAP PO SCH (13:00)
== END 2021-01-17 17:15 ==
LOC: ERS 20:43
DX: F20.9 Schizophrenia, unspecified (principal); I10 Essential (primary) hypertension; Z79.899 Other long term (current) drug therapy
CPT/HCPCS: 99285

== ENCOUNTER 2021-01-27 22:22 | Emergency (ER) | payer SELFPAY | END 2021-01-27 22:40 | disposition home or self-care (01) | LOC: ERS 22:22 | DX: R51.9 Headache, unspecified (principal); I10 Essential (primary) hypertension; Z86.711 Personal history of pulmonary embolism; Z79.01 Long term (current) use of anticoagulants; Z79.899 Other long term (current) drug therapy | CPT/HCPCS: 99283 ==

== ENCOUNTER 2021-01-29 07:18 | Emergency (ER) | payer SELFPAY | END 2021-01-29 07:54 | disposition home or self-care (01) | LOC: ERS 07:18 | DX: R09.81 Nasal congestion (principal); I10 Essential (primary) hypertension; Z86.711 Personal history of pulmonary embolism; Z79.01 Long term (current) use of anticoagulants; Z79.899 Other long term (current) drug therapy | CPT/HCPCS: 99281 ==

== ENCOUNTER 2021-01-29 15:38 | Emergency (ER) | payer SELFPAY ==
[2021-01-29] MEDS ORDERED: Divalproex Sodium 250 MG (DR) TAB ONE (16:16)
[2021-01-29] MEDS ORDERED: OLANZapine 5 MG TAB ONE (16:16)
== END 2021-01-29 16:21 | disposition home or self-care (01) ==
LOC: ERS 15:38
DX: R44.3 Hallucinations, unspecified (principal); I10 Essential (primary) hypertension; Z76.0 Encounter for issue of repeat prescription; Z79.899 Other long term (current) drug therapy; Z86.711 Personal history of pulmonary embolism
CPT/HCPCS: 99284

== ENCOUNTER 2021-01-30 00:01 | Emergency (ER) | payer SELFPAY | END 2021-01-30 00:57 | disposition home or self-care (01) | LOC: ERS 00:01 | DX: Z71.1 Person with feared health complaint in whom no diagnosis is made (principal); I10 Essential (primary) hypertension; Z79.899 Other long term (current) drug therapy | CPT/HCPCS: 99283 ==

== ENCOUNTER 2021-01-31 16:17 | Emergency (ER) | payer OTHER, SELFPAY | END 2021-01-31 16:41 | disposition home or self-care (01) | LOC: ERS 16:17 | DX: F20.9 Schizophrenia, unspecified (principal); I10 Essential (primary) hypertension ==

== ENCOUNTER 2021-04-02 10:25 | Observation (INO) | payer OTHER, SELFPAY ==
[2021-04-02 11:08] LABS: #Eosinphils 0.4 thou/uL (0.0-0.7); #Lymphocytes 1.8 thou/uL (1.20-3.40); #Monocytes 0.6 thou/uL (0.11-0.59); #Neutrophils 3.2 thou/uL (1.40-6.50); %Basophils 0.6 % (0.0-1.0); %Eosinophils 5.9 % (0.0-10.0); %Lymphocytes 30.2 % (21.0-51.0); %Monocytes 10.6 % (0.0-10.0); %Neutrophils 52.8 % (42.0-75.0); Hemoglobin 13.5 g/dL (14.0-18.0); Mean Corpuscular HGB CONC 33.9 g/dL (32.0-36.0); Mean Corpuscular Hemoglobin 29.9 pg (27.0-31.0); Mean Corpuscular Volume 88.4 fL (78.0-98.0); Mean Platelet Volume 6.9 fL (7.4-10.4); Platelet Count 320 thou/uL (130-400)
[2021-04-02 11:28] LABS: Acetaminophen Less than 6.0 mcg/mL (10.0-30.0); Alcohol Less than 10 mg/dL (Less than 10); Salicylate Less than 8.0 mg/dL (15.0-30.0)
[2021-04-02 11:29] LABS: ALT (SGPT) 19 U/L (8-55); AST (SGOT) 33 U/L (5-34); Albumin 3.5 g/dL (3.5-5.0); Alkaline Phosphatase 88 U/L (40-110); Anion Gap 12 mmol/L (10-20); BUN (Urea Nitrogen) 10 mg/dL (8.9-20.6); Bilirubin, Total 0.2 mg/dL (0.2-1.2); CK (CPK) 1017 U/L (30-200); Calc. Creatinine Clearance 0 mL/min (70-130); Carbon Dioxide 25 mmol/L (22-29); Chloride 108 mmol/L (98-107); Globulin 3.3 g/dL (2.4-3.5); Glucose 101 mg/dL (70-105); Potassium 4.4 mmol/L (3.5-5.1); Protein, Total 6.8 g/dL (6.0-8.3); Sodium 141 mmol/L (136-145)
[2021-04-02 12:03] LABS: SARS-CoV-2 NAA Rapid Test Not Detected (NotDetected)
[2021-04-02 12:08] LABS: Actual Bicarbonate (HCO3a) 25.9 mEq/L (22-28); Analyzer IN Cardio ER; CO2 Tension 47.4 mmHg (35.0-45.0); Calcium, Ionized (arterial) 1.18 mmol/L (1.12-1.30); Carboxyhemoglobin (COHb) 1.1 gm% (0.0-3.0); Hemoglobin (Hb) 13.4 g/dL (14.0-18.0); O2 Tension (PaO2), arterial 63.4 mmHg (80.0-100.0); Potassium - ABG Lab 4.21 mmol/L (3.70-5.30); pH, Arterial 7.36 (7.35-7.45)
[2021-04-02 12:12] LABS: Puncture Site LBA
[2021-04-02 12:49] LABS: Bilirubin Negative (Negative); Blood, Urine Negative (Negative); Clarity Clear (Clear); Glucose, Urine (Dipstick) Normal (Negative); Ketone, Urine Negative (Negative); Leukocyte Negative Leu/uL (Negative); Nitrite Negative (Negative); Protein, Urine (Dipstick) Negative (Neg-Trace); Specific Gravity, Urine 1.031 (1.002-1.036); Urobilinogen Normal mg/dL (Less than 2); pH, Urine 7.5 (5.0-9.0)
[2021-04-02 12:58] LABS: Amphetamine Not Detected (NotDetected); Barbiturates Screen Not Detected (NotDetected); Benzodiazepine Screen Not Detected (NotDetected); Cocaine Metabolite Screen Not Detected (NotDetected); Methadone Not Detected (NotDetected); Methamphetamine Not Detected (NotDetected); Opiate Screen Not Detected (NotDetected); Oxycodone Screen Not Detected (NotDetected); Phencyclidine (PCP) Not Detected (NotDetected); THC/Cannabinoid Screen Not Detected (NotDetected); Tricyclic Screen Detected (NotDetected)
[2021-04-02] MEDS ORDERED: Senokot S 8.6-50 MG TAB PO PRN (13:25)
[2021-04-02] MEDS ORDERED: Acetaminophen 325 MG TAB PO PRN (13:25)
[2021-04-02] MEDS ORDERED: Ondansetron ODT 4 MG TAB PO PRN (13:25)
[2021-04-02] MEDS ORDERED: Sodium Chloride 0.9% 1,000 ML IV SCH ×3 (13:30→15:12)
[2021-04-02 14:04] LABS: Magnesium 2.2 mg/dL (1.6-2.6); Phosphorus 4.7 mg/dL (2.3-4.7); Uric Acid 5.1 mg/dL (3.5-7.2)
[2021-04-02 14:09] LABS: Troponin I Less than 0.010 ng/mL (< 0.028)
[2021-04-02] MEDS ORDERED: Furosemide 40 MG TAB PO SCH (14:30)
[2021-04-02 16:55] VITALS: BMI 51.3
[2021-04-02] MEDS ORDERED: hydrALAZINE 20 MG/ML VIAL SLOW IVP PRN (17:00)
[2021-04-02] MEDS: Amlodipine 5 MG TAB PO SCH (20:30)
[2021-04-02] MEDS ORDERED: Divalproex Sodium DR 500 MG TAB PO SCH (22:43)
[2021-04-02] MEDS ORDERED: clonazePAM 1 MG TAB PO SCH (22:45)
[2021-04-03] MEDS ORDERED: Albuterol Sulfate 2.5 mg/3 ml Neb NEB PRN ×2 (04:11→04:14)
[2021-04-03 05:39] LABS: #Eosinphils 0.4 thou/uL (0.0-0.7); #Lymphocytes 1.9 thou/uL (1.20-3.40); #Monocytes 0.6 thou/uL (0.11-0.59); #Neutrophils 2.7 thou/uL (1.40-6.50); %Basophils 0.3 % (0.0-1.0); %Eosinophils 7.3 % (0.0-10.0); %Lymphocytes 34.2 % (21.0-51.0); %Monocytes 10.1 % (0.0-10.0); %Neutrophils 48.1 % (42.0-75.0); Hemoglobin 13.3 g/dL (14.0-18.0); Mean Corpuscular HGB CONC 33.4 g/dL (32.0-36.0); Mean Corpuscular Volume 89.7 fL (78.0-98.0); Mean Platelet Volume 6.9 fL (7.4-10.4); Platelet Count 314 thou/uL (130-400); RBC Distribution Width 12.2 % (11.5-14.5); Red Blood Cell (RBC) Count 4.44 mill/uL (4.70-6.10); White Blood Cell (WBC) Count 5.6 thou/uL (4.8-10.8)
[2021-04-03 06:02] LABS: ALT (SGPT) 16 U/L (8-55); AST (SGOT) 25 U/L (5-34); Albumin 3.4 g/dL (3.5-5.0); Alkaline Phosphatase 88 U/L (40-110); Anion Gap 11 mmol/L (10-20); BUN (Urea Nitrogen) 10 mg/dL (8.9-20.6); Bilirubin, Total 0.2 mg/dL (0.2-1.2); Calc. Creatinine Clearance 233 mL/min (70-130); Carbon Dioxide 26 mmol/L (22-29); Chloride 107 mmol/L (98-107); Glucose 92 mg/dL (70-105); Magnesium 2.2 mg/dL (1.6-2.6); Potassium 4.3 mmol/L (3.5-5.1); Protein, Total 6.4 g/dL (6.0-8.3); Sodium 140 mmol/L (136-145)
[2021-04-03 06:25] LABS: CK (CPK) 717 U/L (30-200); Phosphorus 5.2 mg/dL (2.3-4.7)
[2021-04-03] MEDS: Albuterol Sulfate 2.5 mg/3 ml Neb NEB SCH ×3 (07:17→14:44)
[2021-04-03] MEDS ORDERED: Divalproex Sodium DR 500 MG TAB PO SCH (09:00)
[2021-04-03] MEDS ORDERED: Enoxaparin Sodium 40 MG/0.4 ML SYRINGE SC SCH (09:00)
[2021-04-03] MEDS ORDERED: clonazePAM 0.5 MG TAB PO SCH (09:00)
[2021-04-03] MEDS: Amlodipine 5 MG TAB PO SCH (10:31)
[2021-04-03 15:30] VITALS: TEMP 98.5
[2021-04-03 17:38] VITALS: BP 163/87
[2021-04-05] MEDS ORDERED: FLU VACC QS2021-22(6MOS UP)/PF 60 MCG/0.5 ML SYRINGE IM ONE (17:15)
== END 2021-04-03 17:40 | disposition home or self-care (01) ==
LOC: ERS 10:25 → 2NO 13:24
PROVIDERS: ADMIT Internal Medicine; ATTEND Physician Assistant Medical
DX: E86.0 Dehydration (principal); I16.0 Hypertensive urgency; I10 Essential (primary) hypertension; R06.02 Shortness of breath; R09.89 Other specified symptoms and signs involving the circulatory and respiratory systems; F31.9 Bipolar disorder, unspecified; F20.9 Schizophrenia, unspecified; J32.9 Chronic sinusitis, unspecified; E27.8 Other specified disorders of adrenal gland; E66.01 Morbid (severe) obesity due to excess calories; Z68.43 Body mass index [BMI] 50.0-59.9, adult; Z86.16 Personal history of COVID-19; Z86.711 Personal history of pulmonary embolism; Z86.718 Personal history of other venous thrombosis and embolism; Z79.899 Other long term (current) drug therapy; Z91.013 Allergy to seafood; Z20.822 Contact with and (suspected) exposure to COVID-19
CPT/HCPCS: 0240U; 36415; 36600; 70450; 71045; 71275; 80053; 80306; 80307; 81003; 82550; 82805; 83735; 83880; 84100; 84484; 84550; 85025; 93005; 94640; 94760; 96372; G0378; J1650; J7050; J7611

== ENCOUNTER 2021-08-15 22:22 | Emergency (ER) | payer OTHER ==
[2021-08-15 23:06] LABS: #Basophils 0.1 thou/uL (0.0-0.2); #Eosinphils 0.3 thou/uL (0.0-0.7); #Lymphocytes 3.6 thou/uL (1.20-3.40); #Monocytes 0.7 thou/uL (0.11-0.59); #Neutrophils 4.6 thou/uL (1.40-6.50); %Basophils 0.9 % (0.0-1.0); %Eosinophils 2.8 % (0.0-10.0); %Lymphocytes 38.9 % (21.0-51.0); %Monocytes 7.8 % (0.0-10.0); %Neutrophils 49.6 % (42.0-75.0); Hemoglobin 14.9 g/dL (14.0-18.0); Mean Corpuscular HGB CONC 33.6 g/dL (32.0-36.0); Mean Corpuscular Hemoglobin 29.7 pg (27.0-31.0); Mean Corpuscular Volume 88.5 fL (78.0-98.0); Mean Platelet Volume 6.9 fL (7.4-10.4); Platelet Count 347 thou/uL (130-400); RBC Distribution Width 12.2 % (11.5-14.5); Red Blood Cell (RBC) Count 5.01 mill/uL (4.70-6.10); White Blood Cell (WBC) Count 9.2 thou/uL (4.8-10.8)
[2021-08-15 23:24] LABS: ALT (SGPT) 31 U/L (8-55); AST (SGOT) 47 U/L (5-34); Albumin 4.3 g/dL (3.5-5.0); Alkaline Phosphatase 112 U/L (40-110); Anion Gap 17 mmol/L (10-20); BUN (Urea Nitrogen) 19 mg/dL (8.9-20.6); Bilirubin, Total 0.5 mg/dL (0.2-1.2); Calc. Creatinine Clearance 0 mL/min (70-130); Carbon Dioxide 21 mmol/L (22-29); Chloride 107 mmol/L (98-107); Globulin 3.6 g/dL (2.4-3.5); Glucose 104 mg/dL (70-105); Lipase 24 U/L (8-78); Potassium 3.6 mmol/L (3.5-5.1); Protein, Total 7.9 g/dL (6.0-8.3); Sodium 141 mmol/L (136-145)
== END 2021-08-16 00:45 | disposition home or self-care (01) ==
LOC: ERS 22:22
DX: R10.32 Left lower quadrant pain (principal); I10 Essential (primary) hypertension; F17.210 Nicotine dependence, cigarettes, uncomplicated; Z79.899 Other long term (current) drug therapy
CPT/HCPCS: 36415; 74177; 80053; 83690; 85025

== ENCOUNTER 2021-09-28 10:24 | Inpatient (IN) | payer OTHER ==
[2021-09-28] MEDS ORDERED: Acetaminophen 325 MG TAB PO PRN (14:52)
[2021-09-28] MEDS ORDERED: Ondansetron ODT 4 MG TAB PO PRN (14:52)
[2021-09-28] MEDS ORDERED: Ondansetron PF 4 MG/2 ML Vial IVP PRN (14:52)
[2021-09-28] MEDS ORDERED: Senokot S 8.6-50 MG TAB PO PRN (14:52)
[2021-09-28] MEDS ORDERED: Nicotine 14 MG PATCH TD SCH (15:00)
[2021-09-28 17:19] VITALS: BMI 38.7
[2021-09-28] MEDS: Sodium Chloride 0.9% 1,000 ML IV SCH ×2 (17:27→20:27)
[2021-09-28 19:01] LABS: SARS-CoV-2 NAA Rapid Test Not Detected (NotDetected)
[2021-09-28] MEDS: Enoxaparin Sodium 40 MG/0.4 ML SYRINGE SC SCH (20:27)
[2021-09-28] MEDS: QUETIAPINE FUMARATE 200 MG PO SCH (20:28)
[2021-09-28] MEDS: Divalproex Sodium DR 500 MG TAB PO SCH (20:29)
[2021-09-29] MEDS: Sodium Chloride 0.9% 1,000 ML IV SCH ×3 (04:03→16:04)
[2021-09-29 07:18] LABS: #Basophils 0.1 thou/uL (0.0-0.2); #Eosinphils 0.2 thou/uL (0.0-0.7); #Lymphocytes 2.7 thou/uL (1.20-3.40); #Monocytes 0.6 thou/uL (0.11-0.59); #Neutrophils 3.1 thou/uL (1.40-6.50); %Basophils 1.2 % (0.0-1.0); %Eosinophils 3.7 % (0.0-10.0); %Lymphocytes 40.1 % (21.0-51.0); %Monocytes 8.9 % (0.0-10.0); %Neutrophils 46.2 % (42.0-75.0); Hemoglobin 15.1 g/dL (14.0-18.0); Mean Corpuscular HGB CONC 33.5 g/dL (32.0-36.0); Mean Corpuscular Volume 89.5 fL (78.0-98.0); Mean Platelet Volume 7.4 fL (7.4-10.4); Platelet Count 299 thou/uL (130-400); RBC Distribution Width 11.7 % (11.5-14.5); Red Blood Cell (RBC) Count 5.03 mill/uL (4.70-6.10); White Blood Cell (WBC) Count 6.8 thou/uL (4.8-10.8)
[2021-09-29 07:20] LABS: Anion Gap 14 mmol/L (10-20); BUN (Urea Nitrogen) 9 mg/dL (8.9-20.6); CK (CPK) 1300 U/L (30-200); Calc. Creatinine Clearance 205 mL/min (70-130); Calcium 9.1 mg/dL (7.8-10.44); Carbon Dioxide 22 mmol/L (22-29); Chloride 109 mmol/L (98-107); Estimated GFR 120; Glucose 93 mg/dL (70-105); Potassium 4.2 mmol/L (3.5-5.1); Sodium 141 mmol/L (136-145)
[2021-09-29 08:34] VITALS: TEMP 98.1
[2021-09-29] MEDS ORDERED: Bupropion 150 MG XL TAB PO SCH (09:00)
[2021-09-29] MEDS ORDERED: OLANZapine 5 MG TAB PO SCH (09:00)
[2021-09-29] MEDS ORDERED: Nicotine 21 MG PATCH TD SCH (09:00)
[2021-09-29] MEDS: Divalproex Sodium DR 500 MG TAB PO SCH ×2 (12:32→20:41)
[2021-09-29] MEDS: Enoxaparin Sodium 40 MG/0.4 ML SYRINGE SC SCH (20:41)
[2021-09-29] MEDS: QUETIAPINE FUMARATE 200 MG PO SCH (20:41)
[2021-09-29 22:52] VITALS: BP 141/79
== END 2021-09-30 03:43 | DRG 885 ==
LOC: T4-B 10:24 → OBSVTOIN 14:50
PROVIDERS: ADMIT Hospitalist; ATTEND Hospitalist
DX: F20.0 Paranoid schizophrenia (principal); M62.82 Rhabdomyolysis; R45.850 Homicidal ideations; Z20.822 Contact with and (suspected) exposure to COVID-19; I10 Essential (primary) hypertension; F17.210 Nicotine dependence, cigarettes, uncomplicated; F31.9 Bipolar disorder, unspecified; Z86.711 Personal history of pulmonary embolism; Z79.01 Long term (current) use of anticoagulants; Z86.718 Personal history of other venous thrombosis and embolism; Z91.041 Radiographic dye allergy status; Z91.040 Latex allergy status; Z79.899 Other long term (current) drug therapy
CPT/HCPCS: 36415; 71045; 80048; 82550; 85025; J1650; J7050; U0002

== ENCOUNTER 2021-10-28 00:14 | Emergency (ER) | payer SELFPAY ==
[2021-10-28 01:13] LABS: Amphetamine Not Detected (NotDetected); Barbiturates Screen Not Detected (NotDetected); Benzodiazepine Screen Not Detected (NotDetected); Cocaine Metabolite Screen Not Detected (NotDetected); Methadone Not Detected (NotDetected); Methamphetamine Not Detected (NotDetected); Opiate Screen Not Detected (NotDetected); Oxycodone Screen Not Detected (NotDetected); Phencyclidine (PCP) Not Detected (NotDetected); THC/Cannabinoid Screen Not Detected (NotDetected); Tricyclic Screen Detected (NotDetected)
[2021-10-28] MEDS ORDERED: Divalproex Sodium 250 MG (DR) TAB ONE (15:07)
[2021-10-28] MEDS ORDERED: OLANZapine 5 MG TAB PO PRN ×2 (15:22→15:34)
[2021-10-28] MEDS ORDERED: Acetaminophen 325 MG TAB PO PRN (15:25)
[2021-10-28] MEDS ORDERED: traZODone HCl 50 MG TAB PO PRN (15:26)
[2021-10-28] MEDS ORDERED: hydrOXYzine Pamoate 25 mg Capsule PO PRN (15:26)
[2021-10-28] MEDS ORDERED: risperiDONE 1 MG TAB PO PRN ×2 (15:27→15:32)
[2021-10-28] MEDS ORDERED: Ziprasidone 20 MG CAP PO PRN (15:30)
[2021-10-28] MEDS ORDERED: Nicotine 14 MG PATCH TOP SCH (15:30)
== END 2021-10-28 16:40 ==
LOC: ERS 00:14
DX: F20.9 Schizophrenia, unspecified (principal); I10 Essential (primary) hypertension; F17.210 Nicotine dependence, cigarettes, uncomplicated; F31.9 Bipolar disorder, unspecified; F32.A Depression, unspecified; Z79.899 Other long term (current) drug therapy
CPT/HCPCS: 80306; 99285

== ENCOUNTER 2021-11-08 21:51 | Emergency (ER) | payer SELFPAY ==
[2021-11-08] MEDS ORDERED: Ketorolac Tromethamine 30 MG/ML VIAL ONE (22:47)
[2021-11-08] MEDS ORDERED: Acetaminophen 500 MG TAB ONE ×2 (22:47→22:52)
== END 2021-11-08 23:56 | disposition home or self-care (01) ==
LOC: ERS 21:51
DX: R51.9 Headache, unspecified (principal); I10 Essential (primary) hypertension; F17.210 Nicotine dependence, cigarettes, uncomplicated; Z79.899 Other long term (current) drug therapy
CPT/HCPCS: 96372; 99284; J1885

== ENCOUNTER 2021-11-09 08:21 | Emergency (ER) | payer SELFPAY ==
[2021-11-09] MEDS ORDERED: Acetaminophen 500 MG TAB ONE (08:41)
[2021-11-09 09:01] LABS: #Basophils 0.1 thou/uL (0.0-0.2); #Eosinphils 0.1 thou/uL (0.0-0.7); #Monocytes 0.7 thou/uL (0.11-0.59); #Neutrophils 4.9 thou/uL (1.40-6.50); %Basophils 0.9 % (0.0-1.0); %Eosinophils 1.1 % (0.0-10.0); %Lymphocytes 26.2 % (21.0-51.0); %Monocytes 9.2 % (0.0-10.0); %Neutrophils 62.6 % (42.0-75.0); Hemoglobin 14.7 g/dL (14.0-18.0); Mean Corpuscular Hemoglobin 30.2 pg (27.0-31.0); Platelet Count 325 thou/uL (130-400); RBC Distribution Width 11.9 % (11.5-14.5); Red Blood Cell (RBC) Count 4.87 mill/uL (4.70-6.10); White Blood Cell (WBC) Count 7.8 thou/uL (4.8-10.8)
[2021-11-09] MEDS ORDERED: Albuterol 200 PUFF (6.7GM INHALER) ONE (09:03)
[2021-11-09 09:22] LABS: ALT (SGPT) 12 U/L (8-55); AST (SGOT) 31 U/L (5-34); Albumin 4.5 g/dL (3.5-5.0); Alkaline Phosphatase 107 U/L (40-110); Anion Gap 17 mmol/L (10-20); BUN (Urea Nitrogen) 20 mg/dL (8.9-20.6); Bilirubin, Total 0.3 mg/dL (0.2-1.2); Calc. Creatinine Clearance 0 mL/min (70-130); Calcium 9.7 mg/dL (7.8-10.44); Carbon Dioxide 22 mmol/L (22-29); Chloride 106 mmol/L (98-107); Estimated GFR 63; Globulin 3.4 g/dL (2.4-3.5); Glucose 108 mg/dL (70-105); Protein, Total 7.9 g/dL (6.0-8.3); Sodium 141 mmol/L (136-145)
[2021-11-09] MEDS ORDERED: Iopamidol-370 76% 500 ML 1 ML ONE (09:45)
[2021-11-09 09:48] LABS: SARS-CoV-2 NAA Rapid Test DETECTED (NotDetected)
[2021-11-09] MEDS ORDERED: methylPREDNISolone Sod Succ 40 MG VIAL ONE (10:35)
[2021-11-09] MEDS ORDERED: diphenhydrAMINE 50 MG/ML VIAL ONE (10:35)
[2021-11-09] MEDS ORDERED: Famotidine/PF 20 mg/2ml Vial ONE (10:35)
== END 2021-11-09 13:25 | disposition home or self-care (01) ==
LOC: ERS 08:21
DX: U07.1 COVID-19 (principal); R03.0 Elevated blood-pressure reading, without diagnosis of hypertension; E27.9 Disorder of adrenal gland, unspecified; I10 Essential (primary) hypertension; F17.210 Nicotine dependence, cigarettes, uncomplicated
CPT/HCPCS: 71045; 71275; 80053; 83880; 84484; 85025; 85379; 93005; 96374; 96375; J1200; J2920; Q9967; S0028; U0002